=== PATIENT | female | born 1930 | race African-American/Black ===

== ENCOUNTER 2020-06-07 22:17 | Inpatient (IN) ==
[~2020-06-07 22:17] MED LIST: LORazepam 2 MG/1 ML VIAL ONE
[2020-06-07] MEDS ORDERED: VECURONIUM 10 MG VIAL IV STA (22:20)
[2020-06-07] MEDS ORDERED: ETOMIDATE 20 MG/10 ML VIAL IV STA (22:20)
[2020-06-07] MEDS ORDERED: FOSPHENYTOIN 500 MG.PE/10 ML VIAL ONE (22:23)
[2020-06-07] MEDS ORDERED: FOSPHENYTOIN 1,000 MG.PE in SODIUM CHLORIDE 0.9% 250 ML IV STA (22:42)
[2020-06-07] MEDS ORDERED: LORazepam 2 MG/1 ML VIAL IV STA (22:42)
[2020-06-07] MEDS ORDERED: SODIUM CHLORIDE 0.9% 500 ML IV STA (22:42)
[2020-06-07] MEDS ORDERED: INSULIN REGULAR 100 UNIT/ML SUBCUT STA (22:48)
[2020-06-07 22:52] LABS: Basophils # 0.1 10*3/uL (0.0-0.2); Basophils % 0.3 % (0.0-0.8); Eosinophils # 0.1 10*3/uL (0.0-0.87); Eosinophils % 0.7 % (0.00-10.9); Hematocrit 36.1 VOL% (35.7-47.0); Hemoglobin 11.8 GM/DL (12.0-16.0); Immature Granulocytes % 0.5 %; Immature Granulocytes Absolute 0.08 #; Lymphocytes # 2.2 10*3/uL (1.4-4.0); Lymphocytes % 14.4 % (21.3-54.2); Mean Corpuscular HGB Conc 32.7 GM/DL (32-36); Mean Corpuscular Volume 92.6 FL (87-102); Mean Platelet Volume 9.6 FL (9.6-12.0); Monocytes % 4.4 % (1.7-12.7); Neutrophils % 79.7 % (38.7-73.9); Platelet Count 214 T/CUMM (130-400); Red Cell Distribution Width 13.9 % (9.3-17.3); White Blood Count 15.3 T/CUMM (4-12)
[2020-06-07 22:57] LABS: ABG Base Excess -2.3 MMOL/L (-2.5-2.5); ABG HCO3 22.5 MMOL/L (20-26); ABG Oxygen Saturation 99.9 % (95-100); ABG PCO2 35.4 MM HG (35-48); ABG TCO2 19.7 MMOL/L (23-27)
[2020-06-07 23:12] LABS: Alanine Aminotransferase 17 U/L (13-56); Albumin 3.1 G/DL (3.4-5.0); Alkaline Phosphatase 107 U/L (45-117); Aspartate Amino Transferase 17 U/L (0-37); Bilirubin,Total < 0.39 MG/DL (0.2-1.0); Blood Urea Nitrogen 17 MG/DL (7-18); Calcium 9.3 MG/DL (8.5-10.1); Estimated Glom Filtration Rate 44 ML/MIN; Glucose 425 MG/DL (74-106); Osmolality,Calculated 296.5 MOS/KG (273-304); Total Protein 7.7 G/DL (6.4-8.3); Troponin I < 0.015 NG/ML (0.00-0.045)
[2020-06-07] MEDS ORDERED: POTASSIUM CHLORIDE RIDER 20 MEQ in PREMIX 1 EACH IV STA (23:26)
[2020-06-07] MEDS ORDERED: GLUCAGON 1 MG VIAL IM PRN (23:59)
[2020-06-07] MEDS ORDERED: DEXTROSE 50% 25 GM/50 ML VIAL IV PRN (23:59)
[2020-06-07] MEDS ORDERED: ONDANSETRON 4 MG/2 ML VIAL IV PRN (23:59)
[2020-06-08 00:18] LABS: Barbiturates Screen,Urine Negative (Negative); Benzodiazepines Screen,Urine Negative (Negative); Cannabinoid Screen,Urine Negative (Negative); Opiate Screen,Urine Negative (Negative); Phencyclidine Screen,Urine Negative (Negative)
[2020-06-08] MEDS ORDERED: VECURONIUM 10 MG VIAL IV ONE ×2 (00:19→00:20)
[2020-06-08 00:21] LABS: Amorphous Crystals,Urine Few /HPF (Few); Bilirubin,Urine Negative (Negative); Blood, Urine Negative (Negative); Glucose,Urine (UA) >=500 mg/dL (Negative); Ketones,Urine Negative (Negative); Mucus,Urine Occasional /LPF (Occasional); Nitrite,Urine Negative (Negative); Protein,Urine 100 MG/DL; Squamous Epithelial Cell,Urine Occasional /HPF (0-10); Urine Appearance Slightly Hazy (Clear); Urine Color Yellow (Yellow); Urine Specific Gravity 1.024 (1.001-1.035); Urine Urobilinogen < 2.0 EU/DL (0.2-1.0); WBC,Urine 4 /HPF (0-6)
[2020-06-08] MEDS: hydrALAZINE 20 MG/1 ML VIAL IV PRN (00:35)
[2020-06-08] MEDS: SODIUM CHLOR 0.45% KCL 20 MEQ 20 MEQ/1,000 ML BAG IV SCH ×3 (01:00→22:15)
[2020-06-08 01:32] LABS: Allen Test Positive; Pt O2 Delivery Device Ventilator
[2020-06-08 01:35] LABS: ABG Base Excess 3.5 MMOL/L (-2.5-2.5); ABG HCO3 27.6 MMOL/L (20-26); ABG Oxygen Saturation 99.8 % (95-100); ABG PCO2 32.9 MM HG (35-48); ABG PH 7.509 (7.35-7.45); ABG TCO2 23.2 MMOL/L (23-27)
[2020-06-08 03:56] LABS: ABG Base Excess 3.4 MMOL/L (-2.5-2.5); ABG HCO3 26.3 MMOL/L (20-26); ABG Oxygen Saturation 98.8 % (95-100); ABG PCO2 33.9 MM HG (35-48); ABG PH 7.507 (7.35-7.45); ABG PO2 222.8 MM HG (80-95); ABG TCO2 27.3 MMOL/L (23-27); Allen Test Positive; Pt O2 Delivery Device Ventilator
[2020-06-08 04:29] LABS: Basophils % 0.2 % (0.0-0.8); Eosinophils % 0.1 % (0.00-10.9); Hematocrit 37.3 VOL% (35.7-47.0); Hemoglobin 12.4 GM/DL (12.0-16.0); Immature Granulocytes % 0.6 %; Immature Granulocytes Absolute 0.09 #; Lymphocytes # 1.1 10*3/uL (1.4-4.0); Lymphocytes % 6.7 % (21.3-54.2); Mean Corpuscular HGB Conc 33.2 GM/DL (32-36); Mean Corpuscular Volume 89.9 FL (87-102); Mean Platelet Volume 9.8 FL (9.6-12.0); Monocytes % 8.2 % (1.7-12.7); Neutrophils % 84.2 % (38.7-73.9); Platelet Count 224 T/CUMM (130-400); Red Blood Count 4.15 MC/CUMM (3.8-5.5); White Blood Count 16.2 T/CUMM (4-12)
[2020-06-08 05:38] LABS: Calcium 9.6 MG/DL (8.5-10.1); Osmolality,Calculated 299.3 MOS/KG (273-304); Risk Ratio 1.63; Thyroid Stimulating Hormone 1.2 uIU/ml (0.358-3.74); VLDL CHOLESTEROL 14.8 MG/DL
[2020-06-08] MEDS: INSULIN REGULAR 100 UNIT/ML SUBCUT SCH ×4 (09:13→20:44)
[2020-06-08] MEDS ORDERED: PANTOPRAZOLE 40 MG VIAL IV ONE (09:15)
[2020-06-08] MEDS ORDERED: ENOXAPARIN 40 MG/0.4 ML SYRINGE ONE (09:15)
[2020-06-08] MEDS: PANTOPRAZOLE 40 MG VIAL IV SCH (09:18)
[2020-06-08] MEDS: ENOXAPARIN 40 MG/0.4 ML SYRINGE SUBCUT SCH (09:18)
[2020-06-08] MEDS: PHENYTOIN 100 MG/2 ML VIAL IV SCH (17:20)
[2020-06-08] MEDS: POTASSIUM CHLORIDE RIDER 10 MEQ in PREMIX 1 EACH IV PRN ×2 (22:23→23:23)
[2020-06-09] MEDS: POTASSIUM CHLORIDE RIDER 10 MEQ in PREMIX 1 EACH IV PRN (00:18)
[2020-06-09] MEDS: PHENYTOIN 100 MG/2 ML VIAL IV SCH ×3 (00:30→18:03)
[2020-06-09 07:56] LABS: Basophils % 0.3 % (0.0-0.8); Eosinophils # 0.1 10*3/uL (0.0-0.87); Eosinophils % 0.3 % (0.00-10.9); Hematocrit 33.2 VOL% (35.7-47.0); Hemoglobin 10.8 GM/DL (12.0-16.0); Immature Granulocytes % 0.5 %; Immature Granulocytes Absolute 0.07 #; Lymphocytes # 1.5 10*3/uL (1.4-4.0); Lymphocytes % 9.8 % (21.3-54.2); Mean Corpuscular HGB Conc 32.5 GM/DL (32-36); Mean Corpuscular Volume 91.7 FL (87-102); Mean Platelet Volume 9.3 FL (9.6-12.0); Monocytes % 8.3 % (1.7-12.7); Neutrophils % 80.8 % (38.7-73.9); Platelet Count 176 T/CUMM (130-400); Red Blood Count 3.62 MC/CUMM (3.8-5.5); Red Cell Distribution Width 14.7 % (9.3-17.3); White Blood Count 15.4 T/CUMM (4-12)
[2020-06-09 08:24] LABS: Calcium 8.1 MG/DL (8.5-10.1); Osmolality,Calculated 279.1 MOS/KG (273-304)
[2020-06-09] MEDS: INSULIN REGULAR 100 UNIT/ML SUBCUT SCH ×4 (08:38→20:29)
[2020-06-09] MEDS: SODIUM CHLOR 0.45% KCL 20 MEQ 20 MEQ/1,000 ML BAG IV SCH ×2 (08:39→18:03)
[2020-06-09] MEDS: ENOXAPARIN 40 MG/0.4 ML SYRINGE SUBCUT SCH (08:44)
[2020-06-09] MEDS: PANTOPRAZOLE 40 MG VIAL IV SCH (08:45)
[2020-06-09 13:29] LABS: ABG Base Excess -0.2 MMOL/L (-2.5-2.5); ABG HCO3 24.3 MMOL/L (20-26); ABG PCO2 30.9 MM HG (35-48); ABG PH 7.473 (7.35-7.45); ABG TCO2 20.1 MMOL/L (23-27); Allen Test Positive; Pt O2 Delivery Device Ventilator
[2020-06-09] MEDS: hydrALAZINE 20 MG/1 ML VIAL IV PRN (21:42)
[2020-06-10] MEDS: PHENYTOIN 100 MG/2 ML VIAL IV SCH ×4 (00:27→23:36)
[2020-06-10 03:52] LABS: ABG Base Excess -8.3 MMOL/L (-2.5-2.5); ABG HCO3 17.8 MMOL/L (20-26); ABG Oxygen Saturation 99.5 % (95-100); ABG PCO2 30.5 MM HG (35-48); ABG PH 7.341 (7.35-7.45)
[2020-06-10 04:42] LABS: Basophils # 0.1 10*3/uL (0.0-0.2); Basophils % 0.3 % (0.0-0.8); Eosinophils % 0.2 % (0.00-10.9); Hematocrit 33.9 VOL% (35.7-47.0); Hemoglobin 10.8 GM/DL (12.0-16.0); Immature Granulocytes % 0.8 %; Immature Granulocytes Absolute 0.14 #; Lymphocytes # 1.3 10*3/uL (1.4-4.0); Lymphocytes % 7.3 % (21.3-54.2); Mean Corpuscular HGB Conc 31.9 GM/DL (32-36); Mean Corpuscular Volume 94.7 FL (87-102); Mean Platelet Volume 10.2 FL (9.6-12.0); Monocytes % 9.2 % (1.7-12.7); Neutrophils % 82.2 % (38.7-73.9); Red Blood Count 3.58 MC/CUMM (3.8-5.5); Red Cell Distribution Width 14.9 % (9.3-17.3); White Blood Count 17.6 T/CUMM (4-12)
[2020-06-10] MEDS: SODIUM CHLOR 0.45% KCL 20 MEQ 20 MEQ/1,000 ML BAG IV SCH (04:43)
[2020-06-10 04:48] LABS: Platelet Count 166 T/CUMM (130-400)
[2020-06-10 05:03] LABS: Albumin 2.3 G/DL (3.4-5.0); Bilirubin,Total 0.8 MG/DL (0.2-1.0); Osmolality,Calculated 276.1 MOS/KG (273-304); Total Protein 6.6 G/DL (6.4-8.3)
[2020-06-10] MEDS ORDERED: FUROSEMIDE 40 MG/4 ML VIAL IV ONE (08:35)
[2020-06-10] MEDS: INSULIN REGULAR 100 UNIT/ML SUBCUT SCH ×4 (09:06→23:36)
[2020-06-10] MEDS: PANTOPRAZOLE 40 MG VIAL IV SCH (09:18)
[2020-06-10] MEDS: ENOXAPARIN 40 MG/0.4 ML SYRINGE SUBCUT SCH (09:18)
[2020-06-10] MEDS: LACTATED RINGERS 1,000 ML IV SCH (09:22)
[2020-06-10 09:35] LABS: Allen Test Positive; Pt O2 Delivery Device Ventilator
[2020-06-10 09:42] LABS: ABG HCO3 15.7 MMOL/L (20-26); ABG Oxygen Saturation 99.4 % (95-100); ABG TCO2 12.8 MMOL/L (23-27)
[2020-06-10] MEDS ORDERED: INSULIN REGULAR 100 UNIT/ML SUBCUT SCH (20:00)
[2020-06-11 04:22] LABS: ABG Base Excess -3.5 MMOL/L (-2.5-2.5); ABG Oxygen Saturation 98.9 % (95-100); ABG PCO2 30.9 MM HG (35-48); Pt O2 Delivery Device Ventilator
[2020-06-11 04:28] LABS: Basophils % 0.1 % (0.0-0.8); Eosinophils # 0.1 10*3/uL (0.0-0.87); Hemoglobin 9.6 GM/DL (12.0-16.0); Immature Granulocytes % 0.7 %; Lymphocytes # 0.9 10*3/uL (1.4-4.0); Lymphocytes % 6.6 % (21.3-54.2); Mean Corpuscular Volume 92.9 FL (87-102); Mean Platelet Volume 9.9 FL (9.6-12.0); Neutrophils % 80.6 % (38.7-73.9); Platelet Count 169 T/CUMM (130-400); Red Blood Count 3.23 MC/CUMM (3.8-5.5); Red Cell Distribution Width 14.7 % (9.3-17.3); White Blood Count 13.4 T/CUMM (4-12)
[2020-06-11 04:44] LABS: Albumin 2.1 G/DL (3.4-5.0); Bilirubin,Total 0.7 MG/DL (0.2-1.0); Calcium 7.7 MG/DL (8.5-10.1); Osmolality,Calculated 283.7 MOS/KG (273-304); Total Protein 5.7 G/DL (6.4-8.3)
[2020-06-11] MEDS: INSULIN REGULAR 100 UNIT/ML SUBCUT SCH ×3 (06:29→17:44)
[2020-06-11] MEDS ORDERED: FUROSEMIDE 40 MG/4 ML VIAL IV ONE (08:20)
[2020-06-11] MEDS: LACTATED RINGERS 1,000 ML IV SCH (08:26)
[2020-06-11] MEDS: PHENYTOIN 100 MG/2 ML VIAL IV SCH ×2 (08:57→17:44)
[2020-06-11] MEDS: PANTOPRAZOLE 40 MG VIAL IV SCH (08:58)
[2020-06-11] MEDS: ENOXAPARIN 40 MG/0.4 ML SYRINGE SUBCUT SCH (08:58)
[2020-06-11 15:00] LABS: ABG HCO3 26.2 MMOL/L (20-26); ABG Oxygen Saturation 99.7 % (95-100); ABG PCO2 39.9 MM HG (35-48); ABG PH 7.429 (7.35-7.45); ABG TCO2 23.9 MMOL/L (23-27); Allen Test Positive; Pt O2 Delivery Device Ventilator
[2020-06-11] MEDS ORDERED: RACEPINEPHRINE 0.5 ML NEB RESP TX ONE ×2 (17:18→17:19)
[2020-06-11] MEDS: hydrALAZINE 20 MG/1 ML VIAL IV PRN (23:30)
[2020-06-12] MEDS: INSULIN REGULAR 100 UNIT/ML SUBCUT SCH ×4 (00:17→17:45)
[2020-06-12] MEDS: PHENYTOIN 100 MG/2 ML VIAL IV SCH ×2 (00:22→08:07)
[2020-06-12] MEDS ORDERED: ACETAMINOPHEN 325 MG/10.15 ML UDCUP PO PRN (00:30)
[2020-06-12 01:50] LABS: Bacteria,Urine Many /HPF (Few); Bilirubin,Urine Negative (Negative); Blood, Urine Moderate mg/dL (Negative); Glucose,Urine (UA) >=500 mg/dL (Negative); Ketones,Urine 20 mg/dL (Negative); Mucus,Urine Occasional /LPF (Occasional); Nitrite,Urine Negative (Negative); Protein,Urine 100 MG/DL; RBC,Urine 129 /HPF (0-4); Squamous Epithelial Cell,Urine Occasional /HPF (0-10); Urine Appearance CLOUDY (Clear); Urine Color Yellow (Yellow); Urine Specific Gravity 1.021 (1.001-1.035); WBC,Urine 245 /HPF (0-6)
[2020-06-12 04:59] LABS: Basophils % 0.2 % (0.0-0.8); Eosinophils # 0.1 10*3/uL (0.0-0.87); Eosinophils % 0.8 % (0.00-10.9); Hematocrit 34.8 VOL% (35.7-47.0); Hemoglobin 11.2 GM/DL (12.0-16.0); Immature Granulocytes % 0.6 %; Immature Granulocytes Absolute 0.11 #; Lymphocytes # 0.5 10*3/uL (1.4-4.0); Lymphocytes % 2.9 % (21.3-54.2); Mean Corpuscular HGB Conc 32.2 GM/DL (32-36); Mean Platelet Volume 9.9 FL (9.6-12.0); Monocytes % 8.8 % (1.7-12.7); Neutrophils % 86.7 % (38.7-73.9); Platelet Count 209 T/CUMM (130-400); Red Blood Count 3.74 MC/CUMM (3.8-5.5); Red Cell Distribution Width 14.8 % (9.3-17.3); White Blood Count 17.1 T/CUMM (4-12)
[2020-06-12 05:17] LABS: Calcium 8.9 MG/DL (8.5-10.1); Osmolality,Calculated 295.4 MOS/KG (273-304)
[2020-06-12 05:20] LABS: Band Neutrophils 4 % (0-10); Lymphocytes 3 % (20-55); Segmented Neutrophils 88 % (50-85); Total Cells Counted 100
[2020-06-12 05:21] LABS: Albumin 2.4 G/DL (3.4-5.0); Bilirubin,Total 1.2 MG/DL (0.2-1.0); Calcium 8.7 MG/DL (8.5-10.1); Hypochromasia 1+; Microcytosis Slight; Osmolality,Calculated 292.5 MOS/KG (273-304); Platelet Estimate Normal; Total Protein 7.4 G/DL (6.4-8.3)
[2020-06-12 05:23] LABS: Allen Test Positive; Pt O2 Delivery Device BIPAP
[2020-06-12 05:24] LABS: ABG Base Excess 2.9 MMOL/L (-2.5-2.5); ABG HCO3 27.8 MMOL/L (20-26); ABG Oxygen Saturation 98.7 % (95-100); ABG PCO2 43.6 MM HG (35-48); ABG PH 7.422 (7.35-7.45); ABG PO2 143.8 MM HG (80-95); ABG TCO2 29.1 MMOL/L (23-27)
[2020-06-12] MEDS: ENOXAPARIN 40 MG/0.4 ML SYRINGE SUBCUT SCH (08:12)
[2020-06-12] MEDS: PANTOPRAZOLE 40 MG VIAL IV SCH (08:20)
[2020-06-12] MEDS: INSULIN GLARGINE 100 UNIT/ML SUBCUT SCH (10:22)
[2020-06-12] MEDS: SULFAMETHOX/TRIMETHOPRIM 800-160 MG TABLET PO SCH ×2 (14:42→21:41)
[2020-06-13] MEDS: INSULIN REGULAR 100 UNIT/ML SUBCUT SCH ×4 (00:42→17:32)
[2020-06-13 07:03] LABS: Basophils # 0.1 10*3/uL (0.0-0.2); Basophils % 0.4 % (0.0-0.8); Eosinophils # 0.2 10*3/uL (0.0-0.87); Eosinophils % 1.2 % (0.00-10.9); Hematocrit 31.9 VOL% (35.7-47.0); Hemoglobin 10.1 GM/DL (12.0-16.0); Immature Granulocytes % 0.6 %; Immature Granulocytes Absolute 0.07 #; Lymphocytes # 1.1 10*3/uL (1.4-4.0); Lymphocytes % 8.9 % (21.3-54.2); Mean Corpuscular HGB Conc 31.7 GM/DL (32-36); Mean Corpuscular Volume 93.8 FL (87-102); Mean Platelet Volume 9.5 FL (9.6-12.0); Neutrophils % 78.9 % (38.7-73.9); Platelet Count 235 T/CUMM (130-400); Red Cell Distribution Width 15.1 % (9.3-17.3); White Blood Count 12.4 T/CUMM (4-12)
[2020-06-13 07:41] LABS: Alanine Aminotransferase 11 U/L (13-56); Albumin 2.1 G/DL (3.4-5.0); Alkaline Phosphatase 96 U/L (45-117); Aspartate Amino Transferase 16 U/L (0-37); Bilirubin,Total < 0.39 MG/DL (0.2-1.0); Blood Urea Nitrogen 28 MG/DL (7-18); Calcium 8.9 MG/DL (8.5-10.1); Estimated Glom Filtration Rate 61 ML/MIN; Glucose 297 MG/DL (74-106); Osmolality,Calculated 297.3 MOS/KG (273-304)
[2020-06-13] MEDS ORDERED: LANSOPRAZOLE ODT 30 MG TABLET PEG SCH (09:00)
[2020-06-13] MEDS: INSULIN GLARGINE 100 UNIT/ML SUBCUT SCH (09:08)
[2020-06-13] MEDS: SULFAMETHOX/TRIMETHOPRIM 200-40 MG/5 ML -20 ML UDCUP PEG SCH ×2 (09:08→20:17)
[2020-06-13] MEDS: OMEPRAZOLE ODT 20 MG TABLET PEG SCH (09:09)
[2020-06-13] MEDS: ENOXAPARIN 40 MG/0.4 ML SYRINGE SUBCUT SCH (09:09)
[2020-06-13] MEDS ORDERED: SODIUM PHOSPHATE IV ONE (10:00)
[2020-06-13] MEDS ORDERED: SODIUM CHLORIDE 0.9% IV ONE (10:00)
[2020-06-13] MEDS: PHENYTOIN 100 MG/2 ML VIAL IV SCH (16:04)
[2020-06-13] MEDS: APIXABAN 2.5 MG TABLET PO SCH (20:17)
[2020-06-13] MEDS: ATORVASTATIN 40 MG TABLET PO SCH (20:17)
[2020-06-14] MEDS: INSULIN REGULAR 100 UNIT/ML SUBCUT SCH ×4 (01:00→17:54)
[2020-06-14] MEDS: PHENYTOIN 100 MG/2 ML VIAL IV SCH ×4 (02:41→23:47)
[2020-06-14 05:14] LABS: Basophils % 0.4 % (0.0-0.8); Eosinophils # 0.2 10*3/uL (0.0-0.87); Eosinophils % 2.1 % (0.00-10.9); Hematocrit 29.6 VOL% (35.7-47.0); Hemoglobin 9.1 GM/DL (12.0-16.0); Immature Granulocytes % 0.5 %; Immature Granulocytes Absolute 0.05 #; Lymphocytes # 1.4 10*3/uL (1.4-4.0); Lymphocytes % 14.9 % (21.3-54.2); Mean Corpuscular HGB Conc 30.7 GM/DL (32-36); Mean Corpuscular Volume 94.6 FL (87-102); Mean Platelet Volume 9.4 FL (9.6-12.0); Monocytes % 12.2 % (1.7-12.7); Neutrophils % 69.9 % (38.7-73.9); Platelet Count 237 T/CUMM (130-400); Red Blood Count 3.13 MC/CUMM (3.8-5.5); Red Cell Distribution Width 15.4 % (9.3-17.3); White Blood Count 9.5 T/CUMM (4-12)
[2020-06-14 05:37] LABS: Osmolality,Calculated 299.7 MOS/KG (273-304)
[2020-06-14] MEDS: ASPIRIN CHEW 81 MG TABLET PO SCH (09:04)
[2020-06-14] MEDS: OMEPRAZOLE ODT 20 MG TABLET PEG SCH (09:04)
[2020-06-14] MEDS: SULFAMETHOX/TRIMETHOPRIM 200-40 MG/5 ML -20 ML UDCUP PEG SCH ×2 (09:04→20:44)
[2020-06-14] MEDS: APIXABAN 2.5 MG TABLET PO SCH ×2 (09:04→20:44)
[2020-06-14] MEDS: INSULIN GLARGINE 100 UNIT/ML SUBCUT SCH (09:05)
[2020-06-14] MEDS: ATORVASTATIN 40 MG TABLET PO SCH (20:44)
[2020-06-15] MEDS: INSULIN REGULAR 100 UNIT/ML SUBCUT SCH ×4 (00:34→18:30)
[2020-06-15 05:09] LABS: Osmolality,Calculated 293.3 MOS/KG (273-304)
[2020-06-15] MEDS: INSULIN GLARGINE 100 UNIT/ML SUBCUT SCH (09:01)
[2020-06-15] MEDS: PHENYTOIN 100 MG/2 ML VIAL IV SCH ×2 (09:01→16:14)
[2020-06-15] MEDS: APIXABAN 2.5 MG TABLET PO SCH ×2 (09:02→20:30)
[2020-06-15] MEDS: OMEPRAZOLE ODT 20 MG TABLET PEG SCH (09:02)
[2020-06-15] MEDS: ASPIRIN CHEW 81 MG TABLET PO SCH (09:02)
[2020-06-15] MEDS: SULFAMETHOX/TRIMETHOPRIM 200-40 MG/5 ML -20 ML UDCUP PEG SCH ×2 (09:02→20:30)
[2020-06-15] MEDS: ATORVASTATIN 40 MG TABLET PO SCH (20:30)
[2020-06-16] MEDS: INSULIN REGULAR 100 UNIT/ML SUBCUT SCH ×4 (00:02→18:50)
[2020-06-16] MEDS: PHENYTOIN 100 MG/2 ML VIAL IV SCH ×3 (00:03→17:11)
[2020-06-16] MEDS: INSULIN GLARGINE 100 UNIT/ML SUBCUT SCH (08:29)
[2020-06-16] MEDS: OMEPRAZOLE ODT 20 MG TABLET PEG SCH (08:30)
[2020-06-16] MEDS: APIXABAN 2.5 MG TABLET PO SCH (08:31)
[2020-06-16] MEDS: ASPIRIN CHEW 81 MG TABLET PO SCH (08:31)
[2020-06-16] MEDS: SULFAMETHOX/TRIMETHOPRIM 200-40 MG/5 ML -20 ML UDCUP PEG SCH ×2 (08:40→20:26)
[2020-06-16] MEDS: ENOXAPARIN 40 MG/0.4 ML SYRINGE SUBCUT SCH (15:50)
[2020-06-16] MEDS: ATORVASTATIN 40 MG TABLET PO SCH (20:26)
[2020-06-17] MEDS: PHENYTOIN 100 MG/2 ML VIAL IV SCH ×3 (00:58→18:26)
[2020-06-17] MEDS: INSULIN REGULAR 100 UNIT/ML SUBCUT SCH ×4 (01:11→18:26)
[2020-06-17 05:44] LABS: Basophils % 0.2 % (0.0-0.8); Eosinophils # 0.1 10*3/uL (0.0-0.87); Eosinophils % 1.5 % (0.00-10.9); Hematocrit 28.2 VOL% (35.7-47.0); Hemoglobin 8.9 GM/DL (12.0-16.0); Immature Granulocytes % 0.7 %; Immature Granulocytes Absolute 0.06 #; Lymphocytes # 1.2 10*3/uL (1.4-4.0); Lymphocytes % 13.7 % (21.3-54.2); Mean Corpuscular HGB Conc 31.6 GM/DL (32-36); Mean Platelet Volume 9.5 FL (9.6-12.0); Neutrophils % 70.9 % (38.7-73.9); Platelet Count 299 T/CUMM (130-400); Red Cell Distribution Width 14.3 % (9.3-17.3); White Blood Count 8.7 T/CUMM (4-12)
[2020-06-17 06:08] LABS: Osmolality,Calculated 281.2 MOS/KG (273-304)
[2020-06-17] MEDS: OMEPRAZOLE ODT 20 MG TABLET PEG SCH (08:56)
[2020-06-17] MEDS: INSULIN GLARGINE 100 UNIT/ML SUBCUT SCH (08:57)
[2020-06-17] MEDS: ASPIRIN CHEW 81 MG TABLET PO SCH (08:59)
[2020-06-17] MEDS: ENOXAPARIN 40 MG/0.4 ML SYRINGE SUBCUT SCH (13:00)
[2020-06-17] MEDS: ATORVASTATIN 40 MG TABLET PO SCH (20:31)
[2020-06-18] MEDS: PHENYTOIN 100 MG/2 ML VIAL IV SCH ×3 (00:19→18:12)
[2020-06-18] MEDS: INSULIN REGULAR 100 UNIT/ML SUBCUT SCH ×4 (00:19→18:13)
[2020-06-18] MEDS: INSULIN GLARGINE 100 UNIT/ML SUBCUT SCH (09:11)
[2020-06-18] MEDS: OMEPRAZOLE ODT 20 MG TABLET PEG SCH (09:12)
[2020-06-18] MEDS: ASPIRIN CHEW 81 MG TABLET PO SCH (10:23)
[2020-06-18] MEDS: ATORVASTATIN 40 MG TABLET PO SCH (20:45)
[2020-06-19] MEDS: PHENYTOIN 100 MG/2 ML VIAL IV SCH ×3 (00:34→17:09)
[2020-06-19] MEDS: INSULIN REGULAR 100 UNIT/ML SUBCUT SCH ×4 (00:34→17:20)
[2020-06-19] MEDS ORDERED: ceFAZolin 1,000 MG in SYRINGE 1 EACH IV ONE (06:00)
[2020-06-19 06:08] LABS: Basophils % 0.4 % (0.0-0.8); Eosinophils # 0.2 10*3/uL (0.0-0.87); Eosinophils % 1.5 % (0.00-10.9); Hematocrit 29.8 VOL% (35.7-47.0); Hemoglobin 9.4 GM/DL (12.0-16.0); Immature Granulocytes % 0.8 %; Immature Granulocytes Absolute 0.08 #; Lymphocytes # 1.2 10*3/uL (1.4-4.0); Lymphocytes % 11.8 % (21.3-54.2); Mean Corpuscular HGB Conc 31.5 GM/DL (32-36); Mean Corpuscular Volume 93.7 FL (87-102); Mean Platelet Volume 9.3 FL (9.6-12.0); Monocytes % 11.2 % (1.7-12.7); Neutrophils % 74.3 % (38.7-73.9); Platelet Count 333 T/CUMM (130-400); Red Blood Count 3.18 MC/CUMM (3.8-5.5); White Blood Count 10.1 T/CUMM (4-12)
[2020-06-19 06:14] LABS: Calcium 9.1 MG/DL (8.5-10.1); Osmolality,Calculated 281.8 MOS/KG (273-304)
[2020-06-19] MEDS: LACTATED RINGERS 1,000 ML IV SCH (07:02)
[2020-06-19] MEDS ORDERED: propofoL 200 MG/20 ML VIAL IV ONE (07:08)
[2020-06-19] MEDS: ASPIRIN CHEW 81 MG TABLET PO SCH (10:35)
[2020-06-19] MEDS: INSULIN GLARGINE 100 UNIT/ML SUBCUT SCH (10:36)
[2020-06-19] MEDS: OMEPRAZOLE ODT 20 MG TABLET PEG SCH (10:36)
[2020-06-19] MEDS: ATORVASTATIN 40 MG TABLET PO SCH (20:39)
[2020-06-20] MEDS: PHENYTOIN 100 MG/2 ML VIAL IV SCH (00:58)
[2020-06-20] MEDS: INSULIN REGULAR 100 UNIT/ML SUBCUT SCH ×5 (01:05→23:27)
[2020-06-20 05:53] LABS: Basophils # 0.1 10*3/uL (0.0-0.2); Basophils % 0.5 % (0.0-0.8); Eosinophils # 0.1 10*3/uL (0.0-0.87); Eosinophils % 1.2 % (0.00-10.9); Hemoglobin 9.1 GM/DL (12.0-16.0); Immature Granulocytes % 0.6 %; Immature Granulocytes Absolute 0.07 #; Lymphocytes # 1.4 10*3/uL (1.4-4.0); Lymphocytes % 12.1 % (21.3-54.2); Mean Corpuscular HGB Conc 31.4 GM/DL (32-36); Mean Corpuscular Volume 93.2 FL (87-102); Mean Platelet Volume 9.1 FL (9.6-12.0); Monocytes % 7.2 % (1.7-12.7); Neutrophils % 78.4 % (38.7-73.9); Platelet Count 338 T/CUMM (130-400); Red Blood Count 3.11 MC/CUMM (3.8-5.5); Red Cell Distribution Width 14.2 % (9.3-17.3); White Blood Count 11.2 T/CUMM (4-12)
[2020-06-20 06:03] LABS: Calcium 8.5 MG/DL (8.5-10.1)
[2020-06-20 06:07] LABS: Osmolality,Calculated 289.7 MOS/KG (273-304)
[2020-06-20] MEDS: OMEPRAZOLE ODT 20 MG TABLET PEG SCH (09:05)
[2020-06-20] MEDS: ASPIRIN CHEW 81 MG TABLET PO SCH (09:05)
[2020-06-20] MEDS: PHENYTOIN 100 MG/4 ML UDCUP PO SCH ×3 (09:05→21:26)
[2020-06-20] MEDS: INSULIN GLARGINE 100 UNIT/ML SUBCUT SCH (10:09)
[2020-06-20] MEDS: LEVOFLOXACIN INJ 750 MG in PREMIX 1 EACH IV SCH (12:14)
[2020-06-20] MEDS ORDERED: ALBUTEROL/IPRATROPIUM 3 ML NEB RESP TX PRN (17:27)
[2020-06-20] MEDS: ATORVASTATIN 40 MG TABLET PO SCH (21:26)
[2020-06-20] MEDS: APIXABAN 2.5 MG TABLET PO SCH (21:26)
[2020-06-21] MEDS: INSULIN REGULAR 100 UNIT/ML SUBCUT SCH ×3 (05:35→19:20)
[2020-06-21 06:53] LABS: Basophils % 0.4 % (0.0-0.8); Eosinophils # 0.1 10*3/uL (0.0-0.87); Eosinophils % 1.2 % (0.00-10.9); Hematocrit 28.9 VOL% (35.7-47.0); Hemoglobin 9.3 GM/DL (12.0-16.0); Immature Granulocytes % 0.6 %; Immature Granulocytes Absolute 0.06 #; Lymphocytes # 1.4 10*3/uL (1.4-4.0); Lymphocytes % 13.6 % (21.3-54.2); Mean Corpuscular HGB Conc 32.2 GM/DL (32-36); Mean Corpuscular Volume 93.8 FL (87-102); Mean Platelet Volume 8.5 FL (9.6-12.0); Neutrophils % 76.2 % (38.7-73.9); Platelet Count 301 T/CUMM (130-400); Red Blood Count 3.08 MC/CUMM (3.8-5.5); Red Cell Distribution Width 14.4 % (9.3-17.3); White Blood Count 10.1 T/CUMM (4-12)
[2020-06-21 07:27] LABS: Calcium 8.4 MG/DL (8.5-10.1); Osmolality,Calculated 285.5 MOS/KG (273-304)
[2020-06-21] MEDS: ASPIRIN CHEW 81 MG TABLET PO SCH (09:10)
[2020-06-21] MEDS: OMEPRAZOLE ODT 20 MG TABLET PEG SCH (09:11)
[2020-06-21] MEDS: PHENYTOIN 100 MG/4 ML UDCUP PO SCH ×2 (09:11→15:41)
[2020-06-21] MEDS: APIXABAN 2.5 MG TABLET PO SCH (09:11)
[2020-06-21] MEDS: INSULIN GLARGINE 100 UNIT/ML SUBCUT SCH (10:31)
[2020-06-21] MEDS: LEVOFLOXACIN INJ 750 MG in PREMIX 1 EACH IV SCH (11:46)
[2020-06-21] MEDS: LACTATED RINGERS 1,000 ML IV SCH (13:42)
[2020-06-21 15:44] VITALS: BP 136/90
== END 2020-06-21 19:22 | disposition home health service (06) | DRG 64 ==
LOC: EDUNIT# → EDBD → N.ED 22:17 → SUATTDRO 23:59 → N.EDINP 23:59 → N.ICU 06-08 09:08 → N.5E 06-12 12:12
PROVIDERS: ADMIT Internal Medicine; ATTEND Internal Medicine
PROC: EGDWPEG (ICD-10-PCS; 2020-06-19 07:20)

== ENCOUNTER 2020-07-25 05:39 | Inpatient (IN) ==
[2020-07-25] MEDS ORDERED: LEVOFLOXACIN INJ 500 MG in PREMIX 1 EACH IV STA (06:05)
[2020-07-25] MEDS ORDERED: SODIUM CHLORIDE 0.9% 1,000 ML IV STA ×2 (06:05→06:48)
[2020-07-25 06:08] LABS: Basophils # 0.1 10*3/uL (0.0-0.2); Basophils % 0.9 % (0.0-0.8); Eosinophils % 0.1 % (0.00-10.9); Hematocrit 37.4 VOL% (35.7-47.0); Hemoglobin 11.2 GM/DL (12.0-16.0); Immature Granulocytes % 0.5 %; Immature Granulocytes Absolute 0.07 #; Lymphocytes # 1.1 10*3/uL (1.4-4.0); Lymphocytes % 8.8 % (21.3-54.2); Mean Corpuscular HGB Conc 29.9 GM/DL (32-36); Mean Corpuscular Volume 101.6 FL (87-102); Mean Platelet Volume 9.7 FL (9.6-12.0); Monocytes % 13.8 % (1.7-12.7); Neutrophils % 75.9 % (38.7-73.9); Platelet Count 305 T/CUMM (130-400); Red Blood Count 3.68 MC/CUMM (3.8-5.5); Red Cell Distribution Width 15.2 % (9.3-17.3); White Blood Count 12.8 T/CUMM (4-12)
[2020-07-25] MEDS ORDERED: LEVOFLOXACIN INJ 100 ML IV ONE (06:08)
[2020-07-25 06:16] LABS: Bacteria,Urine Many /HPF (Few); Bilirubin,Urine Negative (Negative); Blood, Urine Large mg/dL (Negative); Glucose,Urine (UA) >=500 mg/dL (Negative); Ketones,Urine 20 mg/dL (Negative); Mucus,Urine Many /LPF (Occasional); Nitrite,Urine Negative (Negative); Protein,Urine 100 MG/DL; RBC,Urine 43 /HPF (0-4); Urine Appearance CLOUDY (Clear); Urine Color Yellow (Yellow); Urine Specific Gravity 1.016 (1.001-1.035); Urine Urobilinogen < 2.0 EU/DL (0.2-1.0); WBC,Urine 201 /HPF (0-6)
[2020-07-25 06:21] LABS: INR 1.1; PT Patient Result 11.8 SECS (9.8-11.9); Partial Thromboplastin Time 29.5 SECS (23.9-33.8)
[2020-07-25 06:27] LABS: Alanine Aminotransferase 29 U/L (13-56); Albumin 2.9 G/DL (3.4-5.0); Alkaline Phosphatase 102 U/L (45-117); Aspartate Amino Transferase 18 U/L (0-37); Bilirubin,Total < 0.39 MG/DL (0.2-1.0); Blood Urea Nitrogen 56 MG/DL (7-18); Calcium 8.7 MG/DL (8.5-10.1); Carbon Dioxide 21 MMOL/L (21-32); Estimated Glom Filtration Rate 27 ML/MIN; Osmolality,Calculated 323.7 MOS/KG (273-304); Sodium 138 MMOL/L (136-145)
[2020-07-25 06:28] LABS: Band Neutrophils 3 % (0-10); Eosinophils 1 % (0-10); Hypochromasia Slight; Lymphocytes 9 % (20-55); Platelet Estimate Adequate; Segmented Neutrophils 78 % (50-85); Total Cells Counted 100
[2020-07-25 06:29] LABS: Glucose 698 MG/DL (74-106); Microcytosis Slight; Ovalocytes Slight
[2020-07-25] MEDS ORDERED: INSULIN REGULAR 100 UNIT/ML IV STA (06:49)
[2020-07-25] MEDS ORDERED: ALBUTEROL 2.5 MG/3 ML NEB RESP TX PRN (08:24)
[2020-07-25] MEDS ORDERED: SODIUM PHOSPHATE INJ 15 MMOL in SODIUM CHLORIDE 0.9% 250 ML IV PRN (08:27)
[2020-07-25] MEDS ORDERED: MAGNESIUM SULF RIDER 2 GM in PREMIX 1 EACH IV PRN (08:27)
[2020-07-25] MEDS ORDERED: MAGNESIUM SULF RIDER 4 GM in PREMIX 1 EACH IV PRN (08:27)
[2020-07-25] MEDS ORDERED: SODIUM BICARB INJ 100 MEQ in STERILE WATER INJ 400 ML IV PRN (08:27)
[2020-07-25] MEDS ORDERED: DEXTROSE 50% 25 GM/50 ML VIAL IV PRN ×2 (08:27)
[2020-07-25] MEDS ORDERED: SODIUM CHLORIDE 0.9% 1,000 ML IV ONE (08:27)
[2020-07-25] MEDS ORDERED: INSULIN REGULAR 100 UNIT/ML IV ONE (08:27)
[2020-07-25] MEDS ORDERED: INSULIN REGULAR DRIP 100 ML IV SCH (08:30)
[2020-07-25 08:50] LABS: ABG Base Excess -7.7 MMOL/L (-2.5-2.5); ABG HCO3 18.2 MMOL/L (20-26); ABG Oxygen Saturation 96.2 % (95-100); ABG PCO2 41.3 MM HG (35-48); ABG PH 7.268 (7.35-7.45); ABG PO2 88.9 MM HG (80-95); ABG TCO2 17.5 MMOL/L (23-27)
[2020-07-25] MEDS ORDERED: ONDANSETRON 4 MG/2 ML VIAL IV PRN (09:00)
[2020-07-25] MEDS: ENOXAPARIN 30 MG/0.3 ML SYRINGE SUBCUT SCH (09:22)
[2020-07-25] MEDS: PANTOPRAZOLE 40 MG VIAL IV SCH (09:22)
[2020-07-25] MEDS ORDERED: SODIUM CHLORIDE 0.9% 1,000 ML IV SCH ×2 (09:27→13:27)
[2020-07-25 09:46] LABS: Calcium 8.1 MG/DL (8.5-10.1); Osmolality,Calculated 317.5 MOS/KG (273-304); Potassium 3.6 MMOL/L (3.5-5.1)
[2020-07-25 10:30] LABS: Basophils # 0.1 10*3/uL (0.0-0.2); Basophils % 0.5 % (0.0-0.8); Eosinophils % 0.1 % (0.00-10.9); Hematocrit 35.5 VOL% (35.7-47.0); Hemoglobin 10.8 GM/DL (12.0-16.0); Immature Granulocytes % 0.5 %; Immature Granulocytes Absolute 0.06 #; Lymphocytes # 1.2 10*3/uL (1.4-4.0); Lymphocytes % 10.4 % (21.3-54.2); Mean Corpuscular HGB Conc 30.4 GM/DL (32-36); Mean Corpuscular Volume 100.6 FL (87-102); Monocytes % 10.7 % (1.7-12.7); Neutrophils % 77.8 % (38.7-73.9); Platelet Count 284 T/CUMM (130-400); Red Blood Count 3.53 MC/CUMM (3.8-5.5); White Blood Count 11.5 T/CUMM (4-12)
[2020-07-25 10:50] LABS: Band Neutrophils 2 % (0-10); Eosinophils 2 % (0-10); Hypochromasia Slight; Lymphocytes 19 % (20-55); Microcytosis Slight; Ovalocytes Slight; Platelet Estimate Adequate; Segmented Neutrophils 70 % (50-85); Total Cells Counted 100
[2020-07-25] MEDS: INSULIN LISPRO 100 UNIT/ML SUBCUT SCH ×7 (10:53→23:02)
[2020-07-25] MEDS: SODIUM CHLORIDE 0.9% 1,000 ML IV SCH ×2 (11:21→18:33)
[2020-07-25 13:39] LABS: ABG Base Excess 0.3 MMOL/L (-2.5-2.5); ABG HCO3 24.6 MMOL/L (20-26); ABG Oxygen Saturation 96.4 % (95-100); ABG PCO2 44.5 MM HG (35-48); ABG TCO2 23.6 MMOL/L (23-27)
[2020-07-25 14:54] LABS: Calcium 7.7 MG/DL (8.5-10.1); Osmolality,Calculated 307.1 MOS/KG (273-304); Potassium 3.5 MMOL/L (3.5-5.1)
[2020-07-25] MEDS: cefTRIAXone 1,000 MG in SYRINGE 1 EACH IV SCH (16:50)
[2020-07-25 18:10] LABS: Calcium 7.7 MG/DL (8.5-10.1); Osmolality,Calculated 301.3 MOS/KG (273-304); Potassium 4.2 MMOL/L (3.5-5.1)
[2020-07-25 21:25] LABS: Calcium 6.1 MG/DL (8.5-10.1); Osmolality,Calculated 310.7 MOS/KG (273-304); Potassium 3.1 MMOL/L (3.5-5.1)
[2020-07-26 01:04] LABS: Calcium 7.8 MG/DL (8.5-10.1); Osmolality,Calculated 301.8 MOS/KG (273-304); Potassium 3.8 MMOL/L (3.5-5.1)
[2020-07-26] MEDS ORDERED: SODIUM CHLORIDE 0.45% 1,000 ML IV SCH (01:27)
[2020-07-26] MEDS: INSULIN LISPRO 100 UNIT/ML SUBCUT SCH ×9 (01:53→21:59)
[2020-07-26 05:43] LABS: Calcium 7.5 MG/DL (8.5-10.1); Osmolality,Calculated 314.4 MOS/KG (273-304); Potassium 3.9 MMOL/L (3.5-5.1)
[2020-07-26] MEDS: ACETAMINOPHEN 325 MG/10.15 ML UDCUP PER TUBE PRN (06:30)
[2020-07-26 06:53] LABS: Basophils # 0.1 10*3/uL (0.0-0.2); Basophils % 0.6 % (0.0-0.8); Eosinophils % 0.1 % (0.00-10.9); Hematocrit 31.4 VOL% (35.7-47.0); Hemoglobin 9.8 GM/DL (12.0-16.0); Immature Granulocytes % 0.9 %; Immature Granulocytes Absolute 0.09 #; Lymphocytes # 1.1 10*3/uL (1.4-4.0); Lymphocytes % 10.5 % (21.3-54.2); Mean Corpuscular HGB Conc 31.2 GM/DL (32-36); Mean Corpuscular Volume 97.5 FL (87-102); Mean Platelet Volume 9.4 FL (9.6-12.0); Monocytes % 8.4 % (1.7-12.7); NRBC # 0.02 10*3/uL; Neutrophils % 79.5 % (38.7-73.9); Platelet Count 233 T/CUMM (130-400); Red Blood Count 3.22 MC/CUMM (3.8-5.5); Red Cell Distribution Width 15.3 % (9.3-17.3); White Blood Count 10.5 T/CUMM (4-12)
[2020-07-26 07:13] LABS: Band Neutrophils 12 % (0-10); Eosinophils 3 % (0-10); Lymphocytes 16 % (20-55); Metamyelocytes 2 %; Segmented Neutrophils 58 % (50-85); Total Cells Counted 100
[2020-07-26 07:14] LABS: Hypochromasia Slight; Microcytosis 1+; Platelet Estimate Normal
[2020-07-26 07:15] LABS: Ovalocytes Slight
[2020-07-26] MEDS: SODIUM CHLORIDE 0.9% 1,000 ML IV SCH ×2 (09:26→16:11)
[2020-07-26] MEDS: ENOXAPARIN 30 MG/0.3 ML SYRINGE SUBCUT SCH (10:29)
[2020-07-26] MEDS: PANTOPRAZOLE 40 MG VIAL IV SCH (10:32)
[2020-07-26] MEDS: ALBUTEROL/IPRATROPIUM 3 ML NEB RESP TX SCH ×2 (12:42→19:41)
[2020-07-26] MEDS: cefTRIAXone 1,000 MG in SYRINGE 1 EACH IV SCH (17:51)
[2020-07-27] MEDS: INSULIN LISPRO 100 UNIT/ML SUBCUT SCH ×5 (00:24→16:29)
[2020-07-27] MEDS: ALBUTEROL/IPRATROPIUM 3 ML NEB RESP TX SCH ×4 (01:06→18:57)
[2020-07-27 03:19] LABS: Basophils # 0.1 10*3/uL (0.0-0.2); Basophils % 0.4 % (0.0-0.8); Eosinophils % 0.1 % (0.00-10.9); Hematocrit 28.3 VOL% (35.7-47.0); Hemoglobin 8.4 GM/DL (12.0-16.0); Immature Granulocytes % 0.9 %; Immature Granulocytes Absolute 0.15 #; Lymphocytes # 1.3 10*3/uL (1.4-4.0); Lymphocytes % 7.3 % (21.3-54.2); Mean Corpuscular HGB Conc 29.7 GM/DL (32-36); Mean Corpuscular Volume 100.4 FL (87-102); Mean Platelet Volume 9.7 FL (9.6-12.0); Monocytes % 6.7 % (1.7-12.7); Neutrophils % 84.6 % (38.7-73.9); Platelet Count 232 T/CUMM (130-400); Red Blood Count 2.82 MC/CUMM (3.8-5.5); Red Cell Distribution Width 15.8 % (9.3-17.3); White Blood Count 17.5 T/CUMM (4-12)
[2020-07-27 04:01] LABS: Band Neutrophils 2 % (0-10); Lymphocytes 9 % (20-55); Segmented Neutrophils 86 % (50-85); Total Cells Counted 100
[2020-07-27 04:02] LABS: Burr Cells Slight; Hypochromasia 1+; Microcytosis 1+; Ovalocytes Slight; Platelet Estimate Adequate
[2020-07-27 04:31] LABS: Calcium 7.8 MG/DL (8.5-10.1); Osmolality,Calculated 315.4 MOS/KG (273-304); Potassium 3.4 MMOL/L (3.5-5.1)
[2020-07-27] MEDS: SODIUM CHLORIDE 0.9% 1,000 ML IV SCH ×2 (07:14→08:51)
[2020-07-27] MEDS: AZITHROMYCIN INJ 500 MG in SODIUM CHLORIDE 0.9% 250 ML IV SCH (08:49)
[2020-07-27] MEDS: PANTOPRAZOLE 40 MG VIAL IV SCH (08:51)
[2020-07-27] MEDS: ENOXAPARIN 30 MG/0.3 ML SYRINGE SUBCUT SCH (08:53)
[2020-07-27] MEDS: POTASSIUM CHLORIDE RIDER 10 MEQ in PREMIX 1 EACH IV PRN ×3 (11:08→14:40)
[2020-07-27] MEDS: SODIUM CHLORIDE 0.45% 1,000 ML IV SCH (14:39)
[2020-07-27] MEDS: SODIUM BICARBONATE 650 MG TABLET PO SCH ×2 (14:41→20:39)
[2020-07-27] MEDS: cefTRIAXone 1,000 MG in SYRINGE 1 EACH IV SCH (16:29)
[2020-07-27] MEDS: INSULIN GLARGINE 100 UNIT/ML SUBCUT SCH (21:20)
[2020-07-28] MEDS: ALBUTEROL/IPRATROPIUM 3 ML NEB RESP TX SCH ×4 (00:52→20:16)
[2020-07-28 05:49] LABS: Basophils # 0.1 10*3/uL (0.0-0.2); Basophils % 0.3 % (0.0-0.8); Eosinophils # 0.2 10*3/uL (0.0-0.87); Hematocrit 29.6 VOL% (35.7-47.0); Hemoglobin 9.1 GM/DL (12.0-16.0); Immature Granulocytes % 1.4 %; Immature Granulocytes Absolute 0.26 #; Lymphocytes # 1.2 10*3/uL (1.4-4.0); Lymphocytes % 6.8 % (21.3-54.2); Mean Corpuscular HGB Conc 30.7 GM/DL (32-36); Mean Corpuscular Volume 99.3 FL (87-102); Mean Platelet Volume 9.8 FL (9.6-12.0); Monocytes % 4.5 % (1.7-12.7); NRBC # 0.02 10*3/uL; Platelet Count 248 T/CUMM (130-400); Red Blood Count 2.98 MC/CUMM (3.8-5.5); Red Cell Distribution Width 16.2 % (9.3-17.3); White Blood Count 18.1 T/CUMM (4-12)
[2020-07-28 06:10] LABS: Calcium 8.1 MG/DL (8.5-10.1); Osmolality,Calculated 311.3 MOS/KG (273-304); Potassium 3.8 MMOL/L (3.5-5.1)
[2020-07-28 06:13] LABS: Eosinophils 4 % (0-10); Lymphocytes 5 % (20-55); Platelet Estimate Adequate; Segmented Neutrophils 90 % (50-85); Total Cells Counted 100
[2020-07-28 06:15] LABS: Hypochromasia 1+; Microcytosis 1+
[2020-07-28] MEDS: SODIUM CHLORIDE 0.45% 1,000 ML IV SCH ×3 (07:04→16:51)
[2020-07-28] MEDS: SODIUM BICARBONATE 650 MG TABLET PO SCH ×2 (10:11→21:50)
[2020-07-28] MEDS: PANTOPRAZOLE 40 MG VIAL IV SCH (10:14)
[2020-07-28] MEDS: AZITHROMYCIN INJ 500 MG in SODIUM CHLORIDE 0.9% 250 ML IV SCH (10:16)
[2020-07-28] MEDS: ENOXAPARIN 30 MG/0.3 ML SYRINGE SUBCUT SCH (10:22)
[2020-07-28] MEDS: POTASSIUM CHLORIDE RIDER 10 MEQ in PREMIX 1 EACH IV PRN ×2 (11:51→13:18)
[2020-07-28 15:13] LABS: Osmolality,Calculated 308.1 MOS/KG (273-304); Potassium 3.9 MMOL/L (3.5-5.1)
[2020-07-28] MEDS: cefTRIAXone 1,000 MG in SYRINGE 1 EACH IV SCH (16:31)
[2020-07-28] MEDS: INSULIN REGULAR 100 UNIT/ML SUBCUT SCH (17:26)
[2020-07-28] MEDS: INSULIN GLARGINE 100 UNIT/ML SUBCUT SCH (21:50)
[2020-07-29] MEDS: ALBUTEROL/IPRATROPIUM 3 ML NEB RESP TX SCH ×4 (00:47→19:30)
[2020-07-29] MEDS: INSULIN REGULAR 100 UNIT/ML SUBCUT SCH ×5 (01:22→23:46)
[2020-07-29] MEDS: SODIUM CHLORIDE 0.45% 1,000 ML IV SCH (06:45)
[2020-07-29 07:19] LABS: Basophils % 0.4 % (0.0-0.8); Eosinophils # 0.4 10*3/uL (0.0-0.87); Eosinophils % 3.6 % (0.00-10.9); Hematocrit 30.1 VOL% (35.7-47.0); Hemoglobin 9.2 GM/DL (12.0-16.0); Immature Granulocytes % 1.4 %; Immature Granulocytes Absolute 0.15 #; Lymphocytes % 9.1 % (21.3-54.2); Mean Corpuscular HGB Conc 30.6 GM/DL (32-36); Mean Corpuscular Volume 96.8 FL (87-102); Mean Platelet Volume 9.9 FL (9.6-12.0); Monocytes % 8.7 % (1.7-12.7); NRBC # 0.03 10*3/uL; Neutrophils % 76.8 % (38.7-73.9); Platelet Count 236 T/CUMM (130-400); Red Blood Count 3.11 MC/CUMM (3.8-5.5); Red Cell Distribution Width 16.3 % (9.3-17.3); White Blood Count 10.5 T/CUMM (4-12)
[2020-07-29] MEDS: AZITHROMYCIN INJ 500 MG in SODIUM CHLORIDE 0.9% 250 ML IV SCH (08:03)
[2020-07-29] MEDS: PANTOPRAZOLE 40 MG VIAL IV SCH (08:04)
[2020-07-29] MEDS: ENOXAPARIN 30 MG/0.3 ML SYRINGE SUBCUT SCH (08:04)
[2020-07-29] MEDS: SODIUM BICARBONATE 650 MG TABLET PO SCH (08:10)
[2020-07-29 08:45] LABS: Calcium 8.2 MG/DL (8.5-10.1); Osmolality,Calculated 306.9 MOS/KG (273-304); Potassium 3.4 MMOL/L (3.5-5.1)
[2020-07-29] MEDS: cefTRIAXone 1,000 MG in SYRINGE 1 EACH IV SCH (16:08)
[2020-07-29] MEDS: ACETAMINOPHEN 325 MG/10.15 ML UDCUP PER TUBE PRN (21:01)
[2020-07-29] MEDS: INSULIN GLARGINE 100 UNIT/ML SUBCUT SCH (21:02)
[2020-07-30] MEDS: ALBUTEROL/IPRATROPIUM 3 ML NEB RESP TX SCH ×4 (00:55→19:00)
[2020-07-30] MEDS: SODIUM CHLORIDE 0.45% 1,000 ML IV SCH (01:48)
[2020-07-30] MEDS: INSULIN REGULAR 100 UNIT/ML SUBCUT SCH ×3 (06:22→18:05)
[2020-07-30] MEDS: PANTOPRAZOLE 40 MG VIAL IV SCH (09:01)
[2020-07-30] MEDS: ENOXAPARIN 30 MG/0.3 ML SYRINGE SUBCUT SCH (09:01)
[2020-07-30] MEDS: FLUCONAZOLE 200 MG TABLET PO SCH (09:01)
[2020-07-30 11:42] LABS: Basophils % 0.4 % (0.0-0.8); Eosinophils # 0.4 10*3/uL (0.0-0.87); Eosinophils % 4.2 % (0.00-10.9); Hematocrit 29.8 VOL% (35.7-47.0); Hemoglobin 9.1 GM/DL (12.0-16.0); Immature Granulocytes % 1.2 %; Lymphocytes # 1.1 10*3/uL (1.4-4.0); Lymphocytes % 12.7 % (21.3-54.2); Mean Corpuscular HGB Conc 30.5 GM/DL (32-36); Mean Corpuscular Volume 98.3 FL (87-102); Mean Platelet Volume 8.9 FL (9.6-12.0); Monocytes % 11.8 % (1.7-12.7); Neutrophils % 69.7 % (38.7-73.9); Platelet Count 199 T/CUMM (130-400); Red Blood Count 3.03 MC/CUMM (3.8-5.5); Red Cell Distribution Width 15.9 % (9.3-17.3); White Blood Count 8.3 T/CUMM (4-12)
[2020-07-30 11:53] LABS: Calcium 7.9 MG/DL (8.5-10.1); Osmolality,Calculated 293.6 MOS/KG (273-304); Potassium 2.8 MMOL/L (3.5-5.1)
[2020-07-30] MEDS: POTASSIUM CHLORIDE RIDER 10 MEQ in PREMIX 1 EACH IV PRN (13:07)
[2020-07-30] MEDS: cefTRIAXone 1,000 MG in SYRINGE 1 EACH IV SCH (18:04)
[2020-07-30] MEDS: POTASSIUM CHLORIDE INJ 40 MEQ in SODIUM CHLORIDE 0.45% 1,000 ML IV SCH (18:04)
[2020-07-30] MEDS: INSULIN GLARGINE 100 UNIT/ML SUBCUT SCH (22:05)
[2020-07-31] MEDS: ALBUTEROL/IPRATROPIUM 3 ML NEB RESP TX SCH ×4 (00:20→20:10)
[2020-07-31] MEDS: INSULIN REGULAR 100 UNIT/ML SUBCUT SCH ×4 (00:53→18:09)
[2020-07-31 05:49] LABS: Basophils % 0.6 % (0.0-0.8); Eosinophils # 0.3 10*3/uL (0.0-0.87); Eosinophils % 5.2 % (0.00-10.9); Hematocrit 29.3 VOL% (35.7-47.0); Immature Granulocytes % 1.2 %; Immature Granulocytes Absolute 0.08 #; Lymphocytes % 15.9 % (21.3-54.2); Mean Corpuscular HGB Conc 30.7 GM/DL (32-36); Mean Corpuscular Volume 97.7 FL (87-102); Mean Platelet Volume 9.5 FL (9.6-12.0); Monocytes % 16.7 % (1.7-12.7); Neutrophils % 60.4 % (38.7-73.9); Platelet Count 187 T/CUMM (130-400); Red Cell Distribution Width 15.8 % (9.3-17.3); White Blood Count 6.5 T/CUMM (4-12)
[2020-07-31 06:09] LABS: Calcium 7.7 MG/DL (8.5-10.1); Osmolality,Calculated 300.6 MOS/KG (273-304)
[2020-07-31 06:16] LABS: Eosinophils 5 % (0-10); Hypochromasia 1+; Lymphocytes 17 % (20-55); Microcytosis 1+; Platelet Estimate Adequate; Segmented Neutrophils 70 % (50-85); Total Cells Counted 100
[2020-07-31] MEDS: PANTOPRAZOLE 40 MG VIAL IV SCH (12:02)
[2020-07-31] MEDS: POTASSIUM CHLORIDE INJ 40 MEQ in SODIUM CHLORIDE 0.45% 1,000 ML IV SCH (12:02)
[2020-07-31] MEDS: FLUCONAZOLE 200 MG TABLET PO SCH (12:02)
[2020-07-31] MEDS: ENOXAPARIN 30 MG/0.3 ML SYRINGE SUBCUT SCH (12:02)
[2020-07-31] MEDS: APIXABAN 2.5 MG TABLET PEG SCH (20:09)
[2020-07-31] MEDS: ATORVASTATIN 40 MG TABLET PEG SCH (21:08)
[2020-07-31] MEDS: INSULIN GLARGINE 100 UNIT/ML SUBCUT SCH (21:08)
[2020-08-01] MEDS: ALBUTEROL/IPRATROPIUM 3 ML NEB RESP TX SCH ×4 (00:23→20:28)
[2020-08-01] MEDS: INSULIN REGULAR 100 UNIT/ML SUBCUT SCH ×4 (00:46→17:00)
[2020-08-01] MEDS: POTASSIUM CHLORIDE INJ 40 MEQ in SODIUM CHLORIDE 0.45% 1,000 ML IV SCH ×2 (02:12→10:42)
[2020-08-01] MEDS: cefTRIAXone 1,000 MG in SYRINGE 1 EACH IV SCH (02:17)
[2020-08-01] MEDS: PANTOPRAZOLE 40 MG VIAL IV SCH (08:48)
[2020-08-01] MEDS: APIXABAN 2.5 MG TABLET PEG SCH ×2 (08:48→22:28)
[2020-08-01] MEDS: TAMOXIFEN 10 MG TABLET PEG SCH (08:48)
[2020-08-01] MEDS: FLUCONAZOLE 200 MG TABLET PO SCH (08:49)
[2020-08-01] MEDS: ASPIRIN CHEW 81 MG TABLET PO SCH (08:49)
[2020-08-01] MEDS: SODIUM CHLORIDE 0.45% 1,000 ML IV SCH (10:43)
[2020-08-01] MEDS: INSULIN GLARGINE 100 UNIT/ML SUBCUT SCH (22:26)
[2020-08-01] MEDS: ATORVASTATIN 40 MG TABLET PEG SCH (22:29)
[2020-08-02] MEDS: INSULIN REGULAR 100 UNIT/ML SUBCUT SCH ×3 (00:28→12:26)
[2020-08-02] MEDS: ALBUTEROL/IPRATROPIUM 3 ML NEB RESP TX SCH ×3 (01:31→13:15)
[2020-08-02] MEDS: cefTRIAXone 1,000 MG in SYRINGE 1 EACH IV SCH (02:31)
[2020-08-02 05:41] LABS: Calcium 8.2 MG/DL (8.5-10.1); Osmolality,Calculated 294.3 MOS/KG (273-304); Potassium 5.3 MMOL/L (3.5-5.1)
[2020-08-02] MEDS: FLUCONAZOLE 200 MG TABLET PO SCH (08:52)
[2020-08-02] MEDS: TAMOXIFEN 10 MG TABLET PEG SCH (08:52)
[2020-08-02] MEDS: APIXABAN 2.5 MG TABLET PEG SCH (08:52)
[2020-08-02] MEDS: ASPIRIN CHEW 81 MG TABLET PO SCH (08:52)
[2020-08-02] MEDS: PANTOPRAZOLE 40 MG VIAL IV SCH (08:53)
[2020-08-02 11:51] VITALS: BP 168/80
[2020-08-02] MEDS ORDERED: INSULIN GLARGINE 100 UNIT/ML SUBCUT SCH (21:00)
== END 2020-08-02 12:50 | disposition hospice, home (50) | DRG 637 ==
LOC: EDUNIT# → N.ED 05:39 → N.EDINP 08:24 → SUATTDRO 08:24 → N.3E 15:15
PROVIDERS: ADMIT Internal Medicine; ATTEND Internal Medicine